=== PATIENT | male | born 1985 | race Caucasian/White ===

== ENCOUNTER 2023-04-10 08:48 | Emergency (ER) | payer SELFPAY ==
[~2023-04-10] VITALS: Ht 182.9 cm; Wt 90.0 kg
[2023-04-10 09:06] VITALS: TEMP 97
[2023-04-10] MEDS ORDERED: LORazepam 2 mg/ml vial ONE ×2 (09:13)
[2023-04-10] MEDS ORDERED: normal saline 1000ML IV soln IVB ONE ×2 (09:15→10:25)
[2023-04-10] MEDS ORDERED: LORazepam 2 mg/ml vial IV ONE (09:15)
[2023-04-10 09:50] LABS: BASOPHILS # (AUTO) 0.1 X10'3 (0-0.2); BASOPHILS % (AUTO) 0.7 % (0-1); EOSINOPHILS % (AUTO) 0 % (0-6); HEMATOCRIT 47.7 % (42.0-52.0); HEMOGLOBIN 16.1 g/dl (14.0-17.9); LYMPHOCYTES # (AUTO) 2.1 X10'3 (1.1-4.8); LYMPHOCYTES % (AUTO) 13.6 % (21-51); MEAN CORPUSCULAR HEMOGLOBIN 31.2 PG (27.0-31.0); MEAN CORPUSCULAR HGB CONC 33.7 g/dL (33.0-36.5); MEAN CORPUSCULAR VOLUME 92.5 FL (78-98); MEAN PLATELET VOLUME 8.1 FL (7.4-10.4); MONOCYTES # (AUTO) 1.4 X10'3 (0-0.9); MONOCYTES % (AUTO) 8.7 % (2-12); NEUTROPHILS # (AUTO) 11.9 X10'3 (1.8-7.7); PLATELET COUNT 302 X10'3 (140-440); RED BLOOD COUNT 5.15 X10'6 (4.70-6.10); RED CELL DISTRIBUTION WIDTH 14.6 % (11.5-14.5); WHITE BLOOD COUNT 15.5 X10'3 (4.5-11.0)
[2023-04-10 10:04] LABS: ALKALINE PHOSPHATASE 111 IU/L (46-116); ANION GAP 23 (8-16); BILIRUBIN,TOTAL 0.8 MG/DL (0.1-1.0); CHLORIDE 98 MMOL/L (99-107); MAGNESIUM 1.8 MG/DL (1.5-2.4); POTASSIUM 3.5 MMOL/L (3.5-5.1); SODIUM 141 MMOL/L (135-145); TOTAL PROTEIN 9.3 G/DL (6.4-8.2)
[2023-04-10 10:05] LABS: ALANINE AMINOTRANSFERASE 190 U/L (12-78); ALBUMIN 4.7 G/DL (3.4-5.0); ASPARTATE AMINO TRANSFERASE 129 U/L (10-37); BLOOD UREA NITROGEN 15 MG/DL (7-18); BUN/CREATININE RATIO 11.9 (10.0-20.0); CALCIUM 9.5 MG/DL (8.5-10.1); CREATININE 1.26 MG/DL (0.60-1.10); GLUCOSE 107 MG/DL (70-104); eCRCL 89 ML/MIN; eGFR 65 ML/MIN
[2023-04-10] MEDS ORDERED: chlordiazePOXIDE 25mg capsule PO ONE (10:10)
[2023-04-10 10:51] VITALS: BP 137/60; PULSE 106; RESP 18; O2SAT 98
--- NOTE | 2023-04-10 11:03 | NUR ---
Received order for consult. Met with patient for alcohol use and to see if patient was interested in resources for treatment options. Patient is interested in outpatient resources. Patient would like to start medication to help with cravings. I gave patient a card for [facility] and my card to call me with any questions.
[2023-04-10] MEDS ORDERED: CHLO25CA10 PO (11:36)
== END 2023-04-10 11:48 | disposition home or self-care (01) ==
LOC: ER 08:49
DX: F10.939 Alcohol use, unspecified with withdrawal, unspecified (principal); Z79.899 Other long term (current) drug therapy; Y90.9 Presence of alcohol in blood, level not specified
CPT/HCPCS: 36415; 71045; 80053; 83735; 84145; 85025; 93005; 96361; 96374; 99285; J2060; J7030